=== PATIENT | female | born 1990 | race Asian ===

== ENCOUNTER → 2016-10-02 | Outpatient (CLI) | payer OTHER ==
[2016-10-02 10:19] LABS: THYROID STIMULATING HORMONE 2.97 uIu/ml (0.300-4.500)
[2016-10-02 10:22] LABS: CALCULATED INSULIN SENSITIVITY 0.372; GLUCOSE LOG 1.9294; INSULIN FASTING 5.7 mU/L (3-25); INSULIN LOG 0.7559; PROLACTIN 45.23 ng/mL
== END | disposition home or self-care (01) ==
LOC: C.LAB 08:24
PROVIDERS: ATTEND Obstetrics & Gynecology
DX: Z31.41 Encounter for fertility testing (principal)

== ENCOUNTER → 2016-10-07 | Outpatient (CLI) | payer OTHER ==
--- NOTE | 2016-10-07 10:51 | DIAGNOSTIC IMAGING REPORT ---
HYSTEROSALPINGOGRAM HISTORY: Infertility. FLUOROSCOPY TIME: 0.3 minutes. TECHNIQUE: The cervix was cannulated by the stone repairer-wash driller helper and water soluble contrast was instilled into the uterus under fluoroscopic guidance. Multiple spot images were obtained. FINDINGS: The uterine cavity is normal in size, shape, and position. The fallopian tubes are patent and there is free peritoneal spill bilaterally. IMPRESSION: Normal hysterosalpingogram. Electronically signed by: Piero Stafford M.D. 10/07/2016 10:49 AM Dictated Date/Time: 10/07/2016 10:49 AM
== END | disposition home or self-care (01) ==
LOC: C.RAD 10:13
PROVIDERS: ATTEND Obstetrics & Gynecology
DX: Z31.41 Encounter for fertility testing (principal)

== ENCOUNTER → 2016-10-15 | Outpatient (CLI) | payer OTHER | END | disposition home or self-care (01) | LOC: C.LAB1850 08:45 | PROVIDERS: ATTEND Obstetrics & Gynecology | DX: R79.9 Abnormal finding of blood chemistry, unspecified (principal) ==

== ENCOUNTER → 2016-12-15 | Outpatient (CLI) | payer OTHER | END | disposition home or self-care (01) | LOC: C.LAB1850 10:11 | PROVIDERS: ATTEND Obstetrics & Gynecology | DX: E22.1 Hyperprolactinemia (principal) ==

== ENCOUNTER → 2017-02-07 | Outpatient (CLI) | payer OTHER | END | disposition home or self-care (01) | LOC: C.LAB1850 10:39 | PROVIDERS: ATTEND Obstetrics & Gynecology | DX: E22.1 Hyperprolactinemia (principal) ==

== ENCOUNTER → 2017-04-28 | Outpatient (CLI) | payer OTHER ==
[~2017-04-28] MED LIST: GADAVIST IV PRN
--- NOTE | 2017-04-28 20:43 | DIAGNOSTIC IMAGING REPORT ---
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 No residual or recurrent mass or abnormal enhancement in this region. Overlying postsurgical change noted. Electronically signed by: Jayson Reyes M.D. 04/28/2017 8:52 PM Dictated Date/Time: 04/28/2017 8:51 PM ORIGINAL REPORT BRAIN COMBO FOR PITUITARY CLINICAL HISTORY: 26 years-old Female presenting with HYPERPROLACTEMIA, history of prior mass resection. TECHNIQUE: Multisequence, multiplanar MR imaging of the brain was performed before and after the administration of intravenous contrast. IV contrast: 5 mL of Gadavist. COMPARISON: None. FINDINGS: Ventricles and sulci normal in size. Old left cerebellar infarct. Prominence of the pituitary which measures up to 8 mm in thickness. Homogeneous enhancement without evidence of a focal mass. No mass effect or midline shift. No restricted diffusion to suggest acute ischemia. No hemorrhage. No extra-axial fluid collection. T2 skull base flow voids preserved. No abnormal parenchymal enhancement. Bone marrow signal intensity within the calvarium within normal limits. IMPRESSION: 1. No acute intracranial pathology. No abnormal enhancement. 2. Prominent pituitary gland within the range of normal for the patient's age and sex. No evidence of a pituitary mass. Electronically signed by: Jayson Reyes M.D. 04/28/2017 8:41 PM Dictated Date/Time: 04/28/2017 8:28 PM
== END | disposition home or self-care (01) ==
LOC: C.MRI 18:19
PROVIDERS: ATTEND Internal Medicine Endocrinology, Diabetes & Metabolism
DX: E22.1 Hyperprolactinemia (principal); G93.89 Other specified disorders of brain; Z98.890 Other specified postprocedural states

== ENCOUNTER → 2017-06-06 | Outpatient (CLI) | payer OTHER ==
[2017-06-07 15:23] LABS: MICROSOMAL AB <1 IU/ML (<9)
== END | disposition home or self-care (01) ==
LOC: C.LAB1850 12:31
PROVIDERS: ATTEND Internal Medicine Endocrinology, Diabetes & Metabolism
DX: E22.1 Hyperprolactinemia (principal); E01.0 Iodine-deficiency related diffuse (endemic) goiter

== ENCOUNTER → 2017-10-21 | Outpatient (CLI) | payer OTHER ==
--- NOTE | 2017-10-21 14:02 | DIAGNOSTIC IMAGING REPORT ---
GUIDANCE NEEDLE PLACEMENT CLINICAL HISTORY: 27 years-old Female presenting with SOLITARY THYROID NODULE. TECHNIQUE: Real-time grayscale and limited color Doppler ultrasound imaging of the thyroid was performed for ultrasound-guided fine-needle aspiration. COMPARISON: Ultrasound from 04/26/2017. PROCEDURE: The risks, benefits, and alternatives of the procedure were discussed with the patient. Written informed consent was obtained. A timeout was performed to confirm patient identity. The patient was placed supine in ultrasound, and the 1.1 cm nodule in the right lobe of the thyroid was localized by ultrasound and selected for fine needle aspiration. The right neck was prepped and draped in the usual sterile fashion. The nodule was aspirated under ultrasound guidance with 2 passes utilizing 25-gauge needles. Specimens were reviewed by the pathologist at the time of biopsy and were deemed adequate for diagnosis. The patient tolerated the procedure well. IMPRESSION: Successful fine-needle aspiration of the right thyroid nodule as above. Electronically signed by: Jayson Reyes M.D. 10/21/2017 2:00 PM Dictated Date/Time: 10/21/2017 1:59 PM
== END | disposition home or self-care (01) ==
LOC: C.ULTR 13:00
PROVIDERS: ATTEND Internal Medicine Endocrinology, Diabetes & Metabolism
DX: E04.1 Nontoxic single thyroid nodule (principal)